=== PATIENT | female | born 1970 | race African-American/Black ===

== ENCOUNTER 2021-06-11 08:26 | Emergency (ER) | payer OTHER ==
[~2021-06-11] VITALS: Ht 165.1 cm; Wt 94.3 kg
[2021-06-11 09:47] LABS: BASOPHIL 0.4 % (0-2); HCT 44.9 % (37.0-47.0); HGB 14.5 g/dl (12.5-16.0); LYMPHOCYTE 31.7 % (15-48); MCH 27.8 pg (25.0-31.0); MCHC 32.3 g/dL (32.0-36.0); MONOCYTE 12.6 % (0-12); MPV 9.8 fL (6.0-9.5); NEUTROPHIL 51.1 % (41-80); NRBC 0; PLT 193 K/uL (150-400); RBC 5.22 M/uL (4.20-5.40); RDW 13.6 % (11.5-14.0); WBC 4.5 K/uL (4.0-10.5)
[2021-06-11 10:08] LABS: CORONAVIRUS 2019 SARS-COV-2 NEGATIVE (NEGATIVE); INFLUENZA A NAA NEGATIVE (NEGATIVE)
[2021-06-11 10:35] LABS: ALBUMIN 4.1 g/dL (3.4-5.0); BILIRUBIN - TOTAL 0.3 mg/dL (0.2-1.0); BUN/CREAT RATIO (CALC) 8.9 RATIO; C-REACTIVE PROTEIN 1.2 mg/dL (<=0.90); CREATININE 0.79 mg/dL (0.51-0.95); GLOBULIN (CALCULATION) 3.7 g/dL; POTASSIUM 3.3 mmol/L (3.5-5.1); TOTAL PROTEIN 7.8 g/dL (6.4-8.2)
== END 2021-06-11 11:48 | disposition left against medical advice (07) ==
LOC: FER 08:26
PROVIDERS: Emergency Medicine
DX: J45.901 Unspecified asthma with (acute) exacerbation (principal); Z53.8 Procedure and treatment not carried out for other reasons; Z20.822 Contact with and (suspected) exposure to COVID-19
CPT/HCPCS: 36415; 71045; 80053; 82728; 83615; 84145; 85025; 86140; 94640; 94664; J2930; U0002